=== PATIENT | female | born 1950 | race Hispanic/Latino ===

== ENCOUNTER → 2018-05-16 | Outpatient (CLI) | payer MEDICARE | LOC: MAMMO 10:13 | PROVIDERS: ATTEND Internal Medicine | DX: Z12.31 Encounter for screening mammogram for malignant neoplasm of breast (principal) | CPT/HCPCS: 77067 ==

== ENCOUNTER 2019-07-24 05:11 | Observation (INO) | payer MEDICARE, OTHER ==
[2019-07-18 12:16] LABS: BASOPHILS % 0.4 % (0.0-1.0); EOSINOPHILS # (AUTO) 0.1 (0.0-0.4); EOSINOPHILS % 2.1 % (0.0-6.0); HEMOGLOBIN 12.9 g/dL (12.0-16.0); LYMPHOCYTES # (AUTO) 1.2 (1.0-3.2); LYMPHOCYTES % 25.3 % (18.0-39.1); MEAN CORPUSCULAR HEMOGLOBIN 29.3 pg (28-32); MEAN CORPUSCULAR HGB CONC 33.1 g/dL (31-35); MEAN CORPUSCULAR VOLUME 88.6 fL (81-99); MONOCYTES # (AUTO) 0.5 (0.2-0.8); MONOCYTES % 9.7 % (4.4-11.3); NEUTROPHILS % 62.1 % (38.7-80.0); PLATELET COUNT 273 x10e3/uL (140-360); RED CELL DISTRIBUTION WIDTH 13.1 % (11.7-14.4)
[2019-07-18 12:31] LABS: ANION GAP 9.9 mmol/L (8-16); BLOOD UREA NITROGEN 15 mg/dL (7-26); BUN/CREATININE RATIO 21 (6-25); CALCIUM 9.5 mg/dL (8.4-10.2); CARBON DIOXIDE 29 mmol/L (22-29); CHLORIDE 104 mmol/L (98-107); CREATININE, SERUM 0.72 mg/dL (0.57-1.11); EST GLOMERULAR FILTRATION RATE > 60 ML/MIN (60-); GLUCOSE 94 mg/dL (74-118); POTASSIUM 3.9 mmol/L (3.5-5.1); SODIUM 139 mmol/L (136-145)
--- NOTE | 2019-07-18 13:01 | Diagnostic Imaging Report ---
EXAMINATION: CHEST 2 VIEWS INDICATION: Pre-operative COMPARISON: None FINDINGS: LINES/TUBES:None LUNGS:The lungs are well-inflated. No focal consolidation or pulmonary edema. Subcentimeter left lower lung calcified granuloma. PLEURA:No pleural effusion or pneumothorax. MEDIASTINUM:The cardiomediastinal silhouette appears normal in size and shape. BONES/SOFT TISSUES:No acute osseous injury. ABDOMEN:No free air under the diaphragm. IMPRESSION: No focal pneumonia or pulmonary edema. Signed by: Irvin López MD on 07/18/2019 12:58 PM
[~2019-07-24] VITALS: Ht 162.6 cm; Wt 78.9 kg
[~2019-07-24 05:11] MED LIST: ATORVASTATIN CA10 MG PO; HYDROCHLOROTHIA25 MG PO; NAPROXEN250 MG PO; calcium PO
--- OUTSIDE RECORDS SUMMARY | 2019-07-24 05:13 | XMS REPORT ---
Author Author [facility] Address Unknown Phone Unavailable Care Team Providers Care Territory Account Executive Name Role Phone WILIAM BAKER Unavailable Unavailable Edu WHITTEN Unavailable Unavailable Payers Payer Name Policy Type Policy Number Effective Date Expiration Date Problems This patient has no known problems. Allergies, Adverse Reactions, Alerts Allergy Name Allergy Type Status Severity Reaction(s) Onset Date Inactive Date Treating Clinician Comments No Known Allergies DA Active U 2019-04-12 00:00:00 Medications This patient has no known medications. Encounters Start Date/Time End Date/Time Encounter Type Admission Type Attending Clinicians Care Facility Care Department Encounter ID 2017-03-30 08:19:26 2017-03-30 08:19:26 Outpatient [facility] [id number] 2017-03-23 00:00:00 2017-03-23 00:00:00 Outpatient [facility] [id number] 2017-03-02 15:23:59 2017-03-02 15:23:59 Outpatient [facility] [id number] 2017-02-24 00:00:00 2017-02-24 00:00:00 Outpatient [facility] [id number] 2017-02-16 00:00:00 2017-02-16 00:00:00 Outpatient [facility] [id number] 2017-02-10 00:00:00 2017-02-10 00:00:00 Outpatient [facility] [id number] 2017-02-09 08:55:24 2017-02-09 08:55:24 Outpatient [facility] [id number] 2017-02-09 08:33:59 2017-02-09 08:33:59 Outpatient [facility] [id number] 2017-02-09 07:49:57 2017-02-09 07:49:57 Outpatient [facility] [id number] 2017-02-04 14:02:09 2017-02-04 14:02:09 Outpatient [facility] [id number] 2017-01-01 16:32:14 2017-01-01 16:32:14 Emergency [facility] [id number] Results Test Description Test Time Test Comments Text Results Atomic Results Result Comments CHEST 2 VIEWS 2019-07-18 12:53:00 [place] [address] Patient Name: KIRK REED MR #: [id number] : 1950 Age/Sex: 69/F Req #: [id number] Adm Physician: Ordered by: WILIAM BAKER MD Report #: [id number] Location: OR Room/Bed: Procedure: [id number] DX/CHEST 2 VIEWS Exam Date: 07/18/19 Exam Time: 1238 REPORT STATUS: Signed EXAMINATION: CHEST 2 VIEWS INDICATION: Pre-operative COMPARISON: None FINDINGS: LINES/TUBES:None LUNGS:The lungs are well-inflated. No focal consolidation or pulmonary edema. Subcentimeter left lower lung calcified granuloma. PLEURA:No pleural effusion or pneumothorax. MEDIASTINUM:The cardiomediastinal silhouette appears normal in size and shape. BONES/SOFT TISSUES:No acute osseous injury. ABDOMEN:No free air under the diaphragm. IMPRESSION: No focal pneumonia or pulmonary edema. Signed by: Be Davies MD on 07/18/2019 12:58 PM Dictated By: BE DAVIES MD [id number] Transcribed By: MAGGY on 07/18/19 5939 COPY TO: WILIAM BAKER MD MAMMOGRAPHY DIGITAL SCR BILAT 2018-05-16 11:20:00 [place] [id number] [place] [address] Patient Name: KIRK REED MR #: [id number] : 1950 Age/Sex: 68/F Req #: [id number] Adm Physician: Ordered by: JUSTEN WHITTEN MD Report #: [id number] Location: MAMMO Room/Bed: Procedure: [id number] MG/MAMMOGRAPHY DIGITAL SCR BILAT Exam Date: 05/16/18 Exam Time: 1033 REPORT STATUS: Signed #[id number] - [id number] #BILATERAL DIGITAL SCREENING MAMMOGRAM WITH CAD: 05/16/2018 CLINICAL: Routine screening. Comparison is made to exams dated: 02/09/2017 mammogram and 07/15/2015 mammogram - [facility]. Current study contains 4 films. There are scattered fibroglandular elements in both breasts. Current study was also evaluated with a Computer Aided Detection (CAD) system. There is a stable benign density and a calcification in the right breast. No significant masses, calcifications, or other findings are seen in either breast. There has been no significant interval change. IMPRESSION: BENIGN There is no mammographic evidence of malignancy. A 1 year screening mammogram is recommended. The patient will be notified by letter of the results. Maria T Gutierrez Jr., D.O. cw/:05/24/2018 13:40:05 Validation Intern: Negrita ZAMBRANO)(M), [facility] letter sent: Compared to Prior B9 Mammogram BI-RADS: 2 Benign Dictated By: MARIA T GUTIERREZ DO 1340 Transcribed By: RICARDA on 05/24/18 1340 COPY TO: JUSTEN WHITTEN MD
[2019-07-24] MEDS ORDERED: CELECOXIB 200 MG CAP ONE (06:13)
[2019-07-24] MEDS ORDERED: DEXAMETHASONE SOD PHOS 10 MG/1 ML VIAL ONE (06:13)
[2019-07-24] MEDS ORDERED: GABAPENTIN 300 MG CAP ONE (06:14)
[2019-07-24] MEDS ORDERED: CEFAZOLIN SOD 1 GM/NS 50ML 100 ML IV ONE (06:14)
[2019-07-24] MEDS ORDERED: TRANEXAMIC ACID 1,000 MG/10 ML ML ONE ×2 (06:50→06:59)
[2019-07-24] MEDS ORDERED: SODIUM CHLORIDE 0.9% 500ML 500 ML ONE (06:50)
[2019-07-24] MEDS ORDERED: VANCOMYCIN HCL 1,000 MG ONE (06:50)
[2019-07-24] MEDS ORDERED: BACITRACIN 50,000 UNIT VIAL ONE (07:00)
[2019-07-24] MEDS ORDERED: ROPIVACAINE 246.25 MG, EPINEPHRINE HCL 1:1000 1ML 0.5 MG, CLONIDINE HCL 0.08 MG, KETORO... INJ ONE ×5 (07:30)
[2019-07-24] MEDS ORDERED: ONDANSETRON HCL INJ 2MG/ML 2ML 2 MG/ML VIAL IV PRN (09:00)
[2019-07-24] MEDS ORDERED: DIPHENHYDRAMINE HCL INJ 50 MG/ML VIAL IM/IV PRN (09:00)
[2019-07-24] MEDS ORDERED: PROMETHAZINE HCL (IM) 25 MG/ML VIAL IM PRN (09:00)
[2019-07-24] MEDS ORDERED: ACETAMINOPHEN 650 MG SUPP PR PRN (09:00)
[2019-07-24] MEDS ORDERED: DOCUSATE SODIUM 100 MG CAP PO PRN (09:00)
[2019-07-24] MEDS ORDERED: KETOROLAC TROMETHAMINE 30 MG/ML VIAL IV PRN (09:00)
[2019-07-24] MEDS ORDERED: CELECOXIB 100 MG CAP PO SCH (09:00)
[2019-07-24] MEDS ORDERED: HYDROCODONE/APAP 5MG-325MG TAB PO PRN (09:00)
--- NOTE | 2019-07-24 09:47 | Diagnostic Imaging Report ---
Left knee, 2 views Clinical indication: Postop Comparison: None Findings: Patient status post metallic left total knee arthroplasty. Alignment is anatomic. No periprosthetic fractures identified. Impression: Status post left total knee arthroplasty. Normal anatomic alignment. Signed by: Kenneth Mariscal MD on 07/24/2019 9:44 AM
[2019-07-24] MEDS: SODIUM CHLORIDE 0.9% 1000ML 1,000 ML IV SCH ×2 (10:37→18:54)
[2019-07-24 10:40] VITALS: BP 124/67
[2019-07-24 11:08] VITALS: BP 124/67
[2019-07-24] MEDS: ASPIRIN 325 MG TAB PO SCH ×2 (12:50→19:04)
[2019-07-24] MEDS: ACETAMINOPHEN 1000 MG/100 ML IV SCH ×2 (12:50→19:05)
[2019-07-24 13:07] VITALS: BP 124/67
[2019-07-24] MEDS: CEFAZOLIN SOD 1 GM/NS 50ML 50 ML IV SCH ×2 (14:25→22:18)
[2019-07-24 15:19] VITALS: BP 111/65
--- NOTE | 2019-07-24 17:25 | Consultation ---
DATE OF CONSULTATION: Internal Medicine Consultation HISTORY OF PRESENT ILLNESS: This is a 69-year-old female patient of mine, presented with left knee severe pain. The patient has a chronic left knee pain and the patient's left knee pain is getting worsening. The patient had failed medical treatment and the patient was consulted by Orthopedic, Dr. Moreau and then patient had chose to have knee replacement surgery, and now the patient is admitted for the knee replacement surgery. PAST MEDICAL HISTORY: Hypertension, hyperlipidemia, and severe osteoarthritis. SOCIAL HISTORY: Denies smoking. Denies using alcohol. SOCIAL HISTORY: The patient is . FAMILY HISTORY: Hypertension and diabetes. REVIEW OF SYSTEMS: Severe knee pain and other detailed review of systems had been examined. Multisystem review of system has been done. PHYSICAL EXAMINATION: VITAL SIGNS: Temperature 98, pulse rate 88, respiration rate 16, and blood pressure 110/70. HEENT: Normocephalic and atraumatic. No JVD. No lymphadenopathy. LUNGS: Bilateral equal air entry. No rales. No rhonchi. HEART: S1 and S2. Regular. No murmur. No gallop. ABDOMEN: Soft. Bowel sounds are present. NEUROLOGICAL: No focal neural deficits. EXTREMITIES: The patient has a left knee postop dressing intact and no bleeding. ADMITTING IMPRESSION/DIAGNOSES: 1. Severe osteoarthritis, left knee. 2. Hypertensive heart disease without heart failure. 3. Hyperlipidemia. 4. Severe arthritis. PLAN: The patient will be monitored postop bleeding and postop care will be given. The patient will be given aggressive physical therapy and occupational therapy upon stabilization of the pain and postop pain, and we will monitor the patient's electrolytes and hemoglobin and hematocrit. MD BALDEV Berumen/CIPRIANO /[id number]
[2019-07-24] MEDS ORDERED: ONDANSETRON HCL INJ 2MG/ML 2ML 2 MG/ML VIAL ONE (19:00)
[2019-07-24] MEDS ORDERED: SEVOFLURANE INHAL SOLN 250 ML PEN BTL ONE (19:00)
[2019-07-24] MEDS ORDERED: PROPOFOL IV EMULSION 10 MG/ML 20 ML VIAL ONE (19:00)
[2019-07-24] MEDS ORDERED: LIDOCAINE HCL 2% LOCAL INJ 5 ML SDV VIAL INJ ONE (19:00)
[2019-07-24] MEDS ORDERED: DEXAMETHASONE SOD PHOS INJ 4 MG/ML VIAL ONE (19:00)
[2019-07-24] MEDS: CELECOXIB 200 MG CAP PO SCH (19:04)
[2019-07-24] MEDS ORDERED: LIDOCAINE 2% /EPINEPHRINE 20 ML SDV INJ ONE (19:24)
[2019-07-24] MEDS ORDERED: ROPIVACAINE 0.5% 5 MG/ML 30 ML SDV ONE (19:24)
[2019-07-24 20:00] VITALS: BP 118/64
[2019-07-24] MEDS ORDERED: FENTANYL CITRATE/PF 100MCG/2 ML INJ ONE (20:03)
[2019-07-24] MEDS ORDERED: MIDAZOLAM HCL 2 MG/2 ML VIAL ONE (20:03)
[2019-07-24] MEDS ORDERED: ZOLPIDEM TARTRATE 5 MG TAB PO PRN (21:00)
[2019-07-24] MEDS ORDERED: ATORVASTATIN 10 MG TAB PO SCH (21:00)
[2019-07-24 23:20] VITALS: BP 111/65
[2019-07-25] VITALS (7 sets, daily range): BP systolic 107–131; BP diastolic 53–67
[2019-07-25] MEDS: HYDROCODONE/APAP 7.5MG-325MG 1 EA TAB PO PRN ×2 (03:12→12:50)
[2019-07-25] MEDS: SODIUM CHLORIDE 0.9% 1000ML 1,000 ML IV SCH (03:57)
[2019-07-25] MEDS: CEFAZOLIN SOD 1 GM/NS 50ML 50 ML IV SCH (05:41)
--- NOTE | 2019-07-25 05:41 | NUR ---
PLACED ON CPM 60 AT THIS TIME
[2019-07-25 05:48] LABS: HEMATOCRIT 36.8 % (34.2-44.1); HEMOGLOBIN 11.9 g/dL (12.0-16.0)
[2019-07-25] MEDS: ACETAMINOPHEN 1000 MG/100 ML IV SCH ×2 (06:00)
[2019-07-25] MEDS ORDERED: ACETAMINOPHEN 1000 MG/100 ML IV PRN (09:00)
[2019-07-25] MEDS: CELECOXIB 200 MG CAP PO SCH (09:11)
[2019-07-25] MEDS: ASPIRIN 325 MG TAB PO SCH (09:11)
--- NOTE | 2019-07-25 10:13 | Operative Report ---
DATE OF PROCEDURE: 07/24/2019 SURGEON: Tutu Moreau MD LOCKS INSPECTOR: Himanshu Maya, certified PA. PREOPERATIVE DIAGNOSIS: Osteoarthritis, left knee. POSTOPERATIVE DIAGNOSIS: Osteoarthritis, left knee. PROCEDURE: Left total knee arthroplasty. INDICATIONS: The patient is a 69-year-old lady, who has advanced osteoarthritis of her left knee. She has failed conservative management and would like to proceed with a left total knee replacement. She had her right knee replaced by another physician at an outside institution. I have reviewed the associated risks and benefits. She states she understands and would like to proceed. PROCEDURE IN DETAIL: The patient was brought to the operating room and placed under general anesthetic. She received prophylactic antibiotics, a regional block and tranexamic acid in the holding area. Her left lower extremity was prepped and draped in a sterile manner. A preoperative time-out was performed. The extremity was exsanguinated and a proximal tourniquet was inflated to 300 mmHg. An anterior incision with a medial parapatellar arthrotomy was performed. Clear synovial fluid was removed from the joint. Soft tissue releases were performed to bring the knee up into full flexion with the patella everted. The meniscal remnants, marginal osteophytes, and cruciate ligaments were sacrificed. Throughout the case, a Lico persona medial congruent knee system were used throughout. An extramedullary cutting guide was used to resect the proximal tibia. The tibial base plate was a size D. The central fin punch was drilled and impacted. Attention was then directed towards the distal femur. An intramedullary cutting guide was used to resect the distal femur and 5-degrees of valgus, and rotation referencing off a combination of Whitesides line, the epicondylar axis and the posterior condyles. There were massive marginal osteophytes in this knee. The femoral component was a size 9. The anterior and posterior cuts were made. A trial reduction was performed. A 10 mm medial congruent tibial insert provided appropriate soft tissue balancing in full extension and 90 degrees of flexion. The patella was resurfaced with a 29 mm patellar button. The thickness was checked before and after, and was right around 22 mm. Patellar tracking was noted to be concentric. The trial implants were then all removed. A 100 mL premixed pericapsular SAMIRA injection was placed into the surrounding soft tissue. The knee was thoroughly irrigated with a shower tip pulsatile lavage. All bone cuts had been irrigated with a diluted mixture of polymyxin and vancomycin spray. The components were cemented into place using a single mix of Biomet high viscosity cement preloaded with antibiotics. Care was taken to remove all extravasated cement. The wound was further irrigated with a shower tip pulsatile lavage while the cement cured. The arthrotomy was then closed with interrupted #1 Ethibond. The knee was put through flexion and extension to ensure a secure closure of the arthrotomy. The skin was closed with subcuticular Vicryl and juliet. A sterile Aquacel bandage and Roni wrap were applied. The patient was extubated and transported to the recovery room in stable condition. Blood loss was minimal. All needle and sponge counts were correct. Tutu Moreau MD DR/CIPRIANO /[id number]
--- NOTE | 2019-07-25 12:02 | NUR ---
Spoke to Patient and daughter Iman [phone] at bedside. Yang with [employer] is here delivering all her supplies. Reached out to Karina with Home care providers to ensure they will be able to see her. Iman states her mom is going to [address] [address] with her for a month. Addendum: 07/25/19 at 1215 by Omaira Ty Spoke with Karina, faxed over info to the office per request.
--- NOTE | 2019-07-25 12:06 | NUR ---
TAHIR explained to patient and daughter, daughter signed, copy to patient, original to chart.
--- NOTE | 2019-07-25 14:15 | NUR ---
Visit made by the Spiritual Care Department Pastoral Visitor, Lizy Miller. PV provided pastoral presence, prayer, hospitality, and supportive listening. Pastoral Visitor informed pt/family of the scope of [employer] and availability. NACHO SHABAZZ [employer] Spiritual Care Department O: [phone] Pager: [phone] ([phone] number calling from)
== END 2019-07-25 14:28 | disposition home health service (06) ==
LOC: OR 05:11 → PACU V 08:57 → MED/SURG 09:42
PROVIDERS: ADMIT Specialist; ATTEND Specialist
DX: M17.12 Unilateral primary osteoarthritis, left knee (principal); I10 Essential (primary) hypertension
CPT/HCPCS: 27447; 36415 ×2; 71046; 73560; 80048; 85014; 85018; 85025; 86850; 86900; 86920; 93005; 97116; 97139; 97161; 97530 ×2; C1713; G0378 ×2; J0131 ×2; J0171; J0690 ×2; J1100 ×2; J1885; J2001 ×2; J2250; J2405 ×2; J2704; J2795; J3010; J3370; J7030; J7040

== ENCOUNTER → 2019-11-02 | Outpatient (CLI) | payer OTHER | LOC: MAMMO 09:36 | PROVIDERS: ATTEND Internal Medicine | DX: Z12.31 Encounter for screening mammogram for malignant neoplasm of breast (principal) | CPT/HCPCS: 77067 ==

== ENCOUNTER → 2020-06-27 | Outpatient (CLI) | payer OTHER | LOC: MAMMO 09:46 | PROVIDERS: ATTEND Internal Medicine | DX: Z12.31 Encounter for screening mammogram for malignant neoplasm of breast (principal) ==

== ENCOUNTER → 2020-08-01 | Outpatient (CLI) | payer MEDICARE, OTHER | LOC: MRI 10:40 | PROVIDERS: ATTEND Internal Medicine | DX: M19.012 Primary osteoarthritis, left shoulder (principal) ==

== ENCOUNTER → 2020-09-06 | Day surgery (SDC) | payer MEDICARE, OTHER ==
[2020-09-03 13:23] LABS: BASOPHILS % 0.7 % (0.0-1.0); EOSINOPHILS # (AUTO) 0.2 (0.0-0.4); EOSINOPHILS % 2.8 % (0.0-6.0); HEMATOCRIT 42.4 % (34.2-44.1); HEMOGLOBIN 13.5 g/dL (12.0-16.0); LYMPHOCYTES # (AUTO) 1.6 (1.0-3.2); MEAN CORPUSCULAR HEMOGLOBIN 28.7 pg (28-32); MEAN CORPUSCULAR HGB CONC 31.8 g/dL (31-35); MONOCYTES # (AUTO) 0.7 (0.2-0.8); MONOCYTES % 10.8 % (4.4-11.3); NEUTROPHILS # (AUTO) 3.6 (2.1-6.9); NEUTROPHILS % 59.4 % (38.7-80.0); PLATELET COUNT 274 x10e3/uL (140-360); RED BLOOD COUNT 4.71 x10e6/uL (3.6-5.1); RED CELL DISTRIBUTION WIDTH 13.1 % (11.7-14.4)
[2020-09-03 13:42] LABS: ALANINE AMINOTRANSFERASE 17 IU/L (0-55); ALBUMIN/GLOBULIN RATIO 1.3 (0.8-2.0); ALKALINE PHOSPHATASE 71 IU/L (40-150); ANION GAP 13.1 mmol/L (8-16); BLOOD UREA NITROGEN 18 mg/dL (7-26); BUN/CREATININE RATIO 25 (6-25); CARBON DIOXIDE 28 mmol/L (22-29); CHLORIDE 104 mmol/L (98-107); CREATININE, SERUM 0.72 mg/dL (0.57-1.11); EST GLOMERULAR FILTRATION RATE > 60 ML/MIN (60-); GLUCOSE 100 mg/dL (74-118); POTASSIUM 4.1 mmol/L (3.5-5.1); SODIUM 141 mmol/L (136-145)
[~2020-09-06] MED LIST changes: +BUPIVACAINE 0.25%/EPI 30ML SDV INJ ONE; +DEXAMETHASONE SOD PHOS INJ 4 MG/ML VIAL ONE; +FENTANYL CITRATE/PF 100MCG/2 ML INJ ONE; +GLYCOPYRROLATE INJ 0.2 MG/ML VIAL ONE; +HYDROCODONE/APAP 7.5MG-325MG 1 EA TAB ONE; +LIDOCAINE HCL 2% JELLY 5 ML TUBE ONE; +LIDOCAINE HCL 2% LOCAL INJ 5 ML SDV VIAL INJ ONE; +LOSARTAN-HCTZ1 EACH PO; +MEPERIDINE HCL INJ 25 MG/ML VIAL ONE; +METOCLOPRAMIDE HCL 10 MG/2ML VIAL ONE; +METOPROLOL SUCC25 MG PO; +NEOSTIGMINE 1 MG/ML 10ML VIAL ONE; +ONDANSETRON HCL INJ 2MG/ML 2ML 2 MG/ML VIAL ONE; +PROPOFOL IV EMULSION 10 MG/ML 20 ML VIAL ONE; +SEVOFLURANE INHAL SOLN 250 ML PEN BTL ONE
[2020-09-06 12:20] VITALS: BP 125/73
== END | disposition home or self-care (01) ==
LOC: OR 06:05
PROVIDERS: ATTEND Surgery
DX: K80.10 Calculus of gallbladder with chronic cholecystitis without obstruction (principal); K43.6 Other and unspecified ventral hernia with obstruction, without gangrene; K82.8 Other specified diseases of gallbladder; I10 Essential (primary) hypertension; E78.5 Hyperlipidemia, unspecified; Z01.810 Encounter for preprocedural cardiovascular examination; Z01.812 Encounter for preprocedural laboratory examination; Z01.818 Encounter for other preprocedural examination; Z20.822 Contact with and (suspected) exposure to COVID-19; Z86.16 Personal history of COVID-19
CPT/HCPCS: 36415; 71046; 80053; 85025; 88304; 93005; C1766; C1781; J1100; J2001; J2175; J2405; J2710; J2765; J3010; U0002

== ENCOUNTER → 2021-01-09 | Outpatient (CLI) | payer MEDICARE, OTHER ==
[~2021-01-09] MED LIST changes: -BUPIVACAINE 0.25%/EPI 30ML SDV INJ ONE; -DEXAMETHASONE SOD PHOS INJ 4 MG/ML VIAL ONE; -FENTANYL CITRATE/PF 100MCG/2 ML INJ ONE; -GLYCOPYRROLATE INJ 0.2 MG/ML VIAL ONE; -HYDROCODONE/APAP 7.5MG-325MG 1 EA TAB ONE; -LIDOCAINE HCL 2% JELLY 5 ML TUBE ONE; -LIDOCAINE HCL 2% LOCAL INJ 5 ML SDV VIAL INJ ONE; -MEPERIDINE HCL INJ 25 MG/ML VIAL ONE; -METOCLOPRAMIDE HCL 10 MG/2ML VIAL ONE; -NEOSTIGMINE 1 MG/ML 10ML VIAL ONE; -ONDANSETRON HCL INJ 2MG/ML 2ML 2 MG/ML VIAL ONE; -PROPOFOL IV EMULSION 10 MG/ML 20 ML VIAL ONE; -SEVOFLURANE INHAL SOLN 250 ML PEN BTL ONE
== END ==
LOC: US 14:54
PROVIDERS: ATTEND Internal Medicine
DX: N95.0 Postmenopausal bleeding (principal)
CPT/HCPCS: 76830

== ENCOUNTER 2021-06-10 05:44 | Observation (INO) | payer MEDICARE ==
[2021-06-06 13:24] LABS: BASOPHILS % 0.5 % (0.0-1.0); EOSINOPHILS # (AUTO) 0.1 (0.0-0.4); HEMATOCRIT 40.9 % (34.2-44.1); HEMOGLOBIN 13.1 g/dL (12.0-16.0); LYMPHOCYTES # (AUTO) 1.6 (1.0-3.2); LYMPHOCYTES % 24.7 % (18.0-39.1); MEAN CORPUSCULAR HEMOGLOBIN 28.9 pg (28-32); MEAN CORPUSCULAR VOLUME 90.3 fL (81-99); MONOCYTES # (AUTO) 0.6 (0.2-0.8); MONOCYTES % 8.7 % (4.4-11.3); NEUTROPHILS # (AUTO) 4.1 (2.1-6.9); NEUTROPHILS % 63.8 % (38.7-80.0); PLATELET COUNT 275 x10e3/uL (140-360); RED BLOOD COUNT 4.53 x10e6/uL (3.6-5.1); RED CELL DISTRIBUTION WIDTH 13.4 % (11.7-14.4)
[2021-06-06 13:47] LABS: ALBUMIN 4.1 g/dL (3.5-5.0); ALBUMIN/GLOBULIN RATIO 1.3 (0.8-2.0); ANION GAP 13.7 mmol/L (8-16); CALCIUM 9.3 mg/dL (8.4-10.2); CREATININE, SERUM 0.75 mg/dL (0.57-1.11); POTASSIUM 4.7 mmol/L (3.5-5.1)
[~2021-06-10] VITALS: Ht 162.6 cm; Wt 81.6 kg
[2021-06-10] MEDS ORDERED: SODIUM CHLORIDE 0.9% 50ML 100 ML ONE (06:27)
[2021-06-10] MEDS ORDERED: ESTROGENS CONJUGATED VAGINAL CR 45 GM TUBE PV ONE (07:25)
[2021-06-10] MEDS ORDERED: BUPIVACAINE 0.25% 30ML SDV ONE (07:25)
[2021-06-10] MEDS ORDERED: LIDOCAINE 1% W/EPINEPHRINE 20 ML VIAL ONE ×2 (07:25→08:28)
[2021-06-10] MEDS ORDERED: PROMETHAZINE HCL (IM) 25 MG/ML VIAL IM PRN (07:45)
[2021-06-10] MEDS ORDERED: ONDANSETRON HCL INJ 2MG/ML 2ML 2 MG/ML VIAL IV PRN (07:45)
[2021-06-10] MEDS ORDERED: DOCUSATE SODIUM 100 MG CAP PO PRN (07:45)
[2021-06-10] MEDS ORDERED: MEPERIDINE HCL INJ 25 MG/ML VIAL IV PRN (07:45)
[2021-06-10] MEDS ORDERED: DIPHENHYDRAMINE HCL 25 MG CAP PO PRN (07:45)
[2021-06-10] MEDS ORDERED: KETOROLAC TROMETHAMINE 30 MG/ML VIAL IM PRN (07:45)
[2021-06-10] MEDS ORDERED: BUPIVACAINE HCL 0.25% 10ML MPF VIAL INJ ONE (08:29)
[2021-06-10] MEDS ORDERED: HYDROMORPHONE 1MG/1ML INJ ONE ×2 (09:41→10:10)
[2021-06-10 12:30] VITALS: BP 125/71
[2021-06-10 12:47] VITALS: BP 125/71
[2021-06-10] MEDS: LACTATED RINGER'S 1,000 ML IV SCH ×2 (13:09→17:38)
[2021-06-10 15:11] VITALS: BP 113/68
[2021-06-10] MEDS ORDERED: FENTANYL CITRATE/PF 100MCG/2 ML INJ ONE (16:24)
[2021-06-10] MEDS ORDERED: MIDAZOLAM HCL 2 MG/2 ML VIAL ONE (16:24)
[2021-06-10 20:00] VITALS: BP 121/71
[2021-06-10] MEDS ORDERED: ZOLPIDEM TARTRATE 5 MG TAB PO PRN (21:00)
[2021-06-11] VITALS (7 sets, daily range): BP systolic 100–122; BP diastolic 48–68
[2021-06-11] MEDS: LACTATED RINGER'S 1,000 ML IV SCH ×2 (02:33→08:45)
[2021-06-11 05:59] LABS: HEMATOCRIT 32.8 % (34.2-44.1)
[2021-06-11 06:05] LABS: HEMOGLOBIN 10.6 g/dL (12.0-16.0)
[2021-06-11] MEDS ORDERED: IBUPROFEN 400 MG TAB PO PRN (10:00)
== END 2021-06-11 15:25 | disposition home or self-care (01) ==
LOC: OR 05:44 → PACU V 07:44 → MED/SURG 12:02
PROVIDERS: ADMIT Obstetrics & Gynecology; ATTEND Obstetrics & Gynecology
DX: N39.3 Stress incontinence (female) (male) (principal); N81.3 Complete uterovaginal prolapse; I10 Essential (primary) hypertension; E78.5 Hyperlipidemia, unspecified; Z86.16 Personal history of COVID-19; Z01.810 Encounter for preprocedural cardiovascular examination; Z01.812 Encounter for preprocedural laboratory examination; Z01.818 Encounter for other preprocedural examination; Z20.822 Contact with and (suspected) exposure to COVID-19
CPT/HCPCS: 36415 ×2; 57240; 57282; 57288; 58260; 71046; 80053; 85014; 85018; 85025; 88305; 93005; 96360; 96361 ×2; C1781; G0378 ×2; J0690; J1170; J2175; J2250; J2405; J3010; J7121 ×2; U0002; 88307

== ENCOUNTER → 2022-01-14 | Outpatient (CLI) | payer MEDICARE | LOC: MAMMO 10:59 | PROVIDERS: ATTEND Internal Medicine | DX: Z12.31 Encounter for screening mammogram for malignant neoplasm of breast (principal) | CPT/HCPCS: 77067 ==

== ENCOUNTER → 2023-02-11 | Outpatient (CLI) | payer MEDICARE | LOC: MAMMO 12:04 | PROVIDERS: ATTEND Internal Medicine | DX: Z12.31 Encounter for screening mammogram for malignant neoplasm of breast (principal) | CPT/HCPCS: 77067 ==

== ENCOUNTER → 2023-03-11 | Outpatient (CLI) | payer MEDICARE, OTHER | LOC: MAMMO 13:26 | PROVIDERS: ATTEND Internal Medicine | DX: N64.89 Other specified disorders of breast (principal) ==

== ENCOUNTER → 2024-03-16 | Outpatient (REF) | payer MEDICARE, OTHER | LOC: MAMMO 14:38 | PROVIDERS: ATTEND Internal Medicine | DX: Z12.31 Encounter for screening mammogram for malignant neoplasm of breast (principal) | CPT/HCPCS: 77067 ==

== ENCOUNTER → 2025-02-14 | Outpatient (REF) | payer MEDICARE | LOC: US 10:20 | PROVIDERS: ATTEND Student in an Organized Health Care Education/Training Program | DX: R10.12 Left upper quadrant pain (principal) | CPT/HCPCS: 76700 ==

== ENCOUNTER → 2025-02-28 | Outpatient (REF) | payer MEDICARE ==
[~2025-02-28] MED LIST changes: +IOPAMIDOL 370 MG/ML 100 ML INFUS..BTL INJ ONE
[2025-02-28 15:50] LABS: EST GLOMERULAR FILTRATION RATE 87.0 ML/MIN (>=60)
== END ==
LOC: CT 14:57
PROVIDERS: ATTEND Student in an Organized Health Care Education/Training Program
DX: R19.00 Intra-abdominal and pelvic swelling, mass and lump, unspecified site (principal)
CPT/HCPCS: 36415; 74178; 82565; 84520; Q9967